=== PATIENT | male | born 1990 | race Two or more races ===

== ENCOUNTER 2024-09-02 05:59 | Day surgery (SDC) | payer OTHER, SELFPAY ==
[2024-09-02] VITALS (9 sets, daily range): BP systolic 111–132; BP diastolic 75–85; BMI 23.0
[2024-09-02] MEDS: TYLENOL 1000 MG PO (06:25)
[2024-09-02] MEDS: NORMOSOL-R/PLASMALYTE-A 1000 IV (06:26)
--- NOTE | 2024-09-02 07:10 | W.SUR.PREOP ---
Pre-Operative Surgical Note
-
I have examined this patient prior to the performance of the scheduled procedure.
The patient's condition is unchanged from the time of the current History and
Physical and the patient is able to undergo the scheduled procedure.
--- NOTE | 2024-09-02 07:10 | HP.FOC2 ---
Focused History & Physical
Chief Complaint
HPI:
Chief Complaint: Left inguinal hernia
HPI / Indication for Planned Procedure: Symptomatic left inguinal hernia. Will plan for a robotic left inguinal hernia repair with mesh.
Relevant Past Medical History: Negative
Relevant Social History: Negative
Relevant Family History: Negative
Relevant Past Surgical History: Negative
Review of Systems
Review of Pertinent Systems: All Systems Negative
Medication
See Medication form for detailed medications: Yes
Medication List (including Herbals & OTC):
cetirizine 10 mg tablet (Zyrtec) 10 mg PO DAILY Allergies 08/30/24
multivitamin 1 tab PO DAILY 08/30/24
Medications Reviewed: Yes
Allergies and Reactions
Patient has Allergies: No
Noted Allergies and Reactions:
Allergy/AdvReac Type Severity Reaction Status Date / Time
No Known Allergies Allergy Verified 09/02/24 06:08
Pertinent Physical Exam
All Other Systems: Negative
Head/Neck: Normal
Diagnosis / Assessment
Symptomatic left inguinal hernia.
Plan / Procedure
Robotic left inguinal hernia repair with mesh.
Anesthesia/Sedation to be done by Anesthesia Provider: Yes
--- NOTE | 2024-09-02 08:56 | W.IMMPOSTOP ---
Surgical Immed Post Op Note
-
Primary Surgeon: Flaco Bass MD
Assisting Surgeon: None
Pre-op Diagnosis: Incarcerated left inguinal hernia
Post-op Diagnosis: Same
Procedure Performed: Robotic incarcerated left inguinal hernia repair with mesh
Anesthesia Type: General
Specimen / Cultures: None
Estimated Blood Loss: 11 cc
Complications: None
Operative Findings: Left indirect inguinal hernia containing incarcerated sigmoid colon. After reduction standard ANABEL repair was performed and the critical view of the MPO was achieved. The MPO was then reinforced with a large left Bard 3D max
uncoated polypropylene mesh.
--- NOTE | 2024-09-02 08:58 | OR.RPT ---
Operative Report
Operative Report
Patient Name: Dakota Carl
: 1990
Date of Operation: 09/02/2024
Preoperative Diagnosis: Incarcerated inguinal hernia, left
Postoperative Diagnosis: Same
Procedure(s):
Robotic incarcerated left inguinal Hernia Repair with mesh, (ANABEL approach)
Surgeon(s):
Dr. Bass
Physicist Nuclear(s):
BRIDGETT Jaime
Anesthesia: General
Estimated Blood Loss: 11 cc
Urine Output: None
Drains/Lines/Implants: Large 3D Max Bard mid weight uncoated polypropylene mesh
Specimens: None
Indication for surgery: The patient has a history of groin pain and noted on exam to have a Left inguinal Hernia(s). Following review of therapeutic options they have elected to undergo a minimally invasive repair.
Operative Findings: Left indirect inguinal hernia containing incarcerated sigmoid colon. After reduction standard ANABEL repair was performed and the critical view of the MPO was achieved. The MPO was then reinforced with a large left Bard 3D max
uncoated polypropylene mesh.
Details of the operation:
The patient was brought to the Operating Room and placed in the supine position with the arms tucked. IV antibiotics were infused and Venodyne stockings placed. Following uneventful induction of general endotracheal anesthesia, an orogastric tube
were placed. The abdomen was prepped and draped in the usual sterile fashion. The abdomen was entered using a Veress technique which required 1 pass, pneumoperitoneum to 15 mmHg was obtained without difficulty. An 8mm trochar was passed through
the abdominal wall roughly 20 cm cephalad to the inguinal canal. We then confirmed that no inadvertent injury was made while passing the trocar or Veress needle. We then placed two additional 8 mm ports in the left upper and right upper quadrants.
We then docked the robot with a Prograsper in the left hand port and monopolar scissors in the right. An incarcerated left inguinal hernia was identified containing sigmoid colon. No defect was noted on the right. Using gentle pressure the
sigmoid colon was reduced and a few small adhesions were carefully lysed off of the peritoneum. We then began by creating a flap at the level of the ASIS laterally working our way medially to the medial umbilical fold. Staying onto the peritoneum
we were able to circumferentially dissect around the hernia sac and and peel it off of the underlying spermatic cord and testicular vessels, taking care to preserve them. Medially we identified the midline pubis as well as Hermelindo's ligament and
ensured to dissect 2 cm below the pubic rim over the bladder. After exposure of the entire myopectineal orifice we identified and reduced: A large sized indirect inguinal hernia, through a small aperture, no direct inguinal hernia, no femoral
hernia, and no cord lipoma.
We then fixated a large 3D max mesh with a 2-0 Vicryl stitch at coopers medially and superior laterally. The flap was then closed with a running 2-0 barbed monocryl suture ensuring that the tail was cut flush with the medial fat pad so that no
barbs were exposed. During the closure of the flap an Angiocath was inserted and 20 cc of quarter percent Marcaine was instilled. The area in the flap cavity was then evacuated of air confirming that the mesh was flush and there were no folds. A
small rent in the peritoneum was noted and closed with 2-0 Vicryl. All needles and instruments were then removed and the robot was undocked. The abdomen was then desufflated, and pneumoperitoneum evacuated. All skin sites were then closed with 4-0
Monocryl followed by Dermabond. Counts were correct and overall, the patient tolerated the procedure well and was taken to the Recovery Room postoperatively in stable condition.
Lizabeth was the attending physician and performed the procedure with assistance of the PA above. The assistance of BRIDGETT Jaime was required due to the complexity of the procedure. During the procedure Racquel assisted with port placement, instrument
and needle exchanges, and closure of the wound. Lizabeth was present for all portions of the case, excluding skin closure.
Flaco Bass MD
== END 2024-09-02 10:57 | disposition home or self-care (01) ==
LOC: SDS 05:59
PROVIDERS: ATTENDING PHYSICIAN Surgery
DX: K40.30 Unilateral inguinal hernia, with obstruction, without gangrene, not specified as recurrent (principal); R10.30 Lower abdominal pain, unspecified
CPT/HCPCS: 49650; C1781